=== PATIENT | male | born 1970 | race Hispanic/Latino ===

== ENCOUNTER 2025-04-15 14:35 | Emergency (ER) | payer BC, SELFPAY ==
[2025-04-15 14:36] VITALS: BP 173/102
[2025-04-15 18:31] VITALS: BP 153/98
--- NOTE | 2025-04-15 18:39 | ED.GENMED ---
History of Present Illness
General
Chief Complaint: Back Pain
Time Seen by Provider: 04/15/25 18:28
History of Present Illness
History of Present Illness:
54-year-old male presents to the emergency department for evaluation of lower back pain for the past 2 days. States he bent forward and twisted to pick something up when he felt acute pain. Gradually worsening since onset. No lower extremity
radiculopathy or paresthesias, denies bowel or bladder incontinence. Has taken acetaminophen without relief.
Past History
Past History
ED Past Medical History: None and HTN (untreated)
ED Past Surgical History: None
Social History
Tobacco: Smoker
Alcohol: None
Drug: None
Review of Systems
Review of Systems
Allergies reviewed?: Yes
All Other Systems: ROS reviewed and negative except as documented in HPI and ROS
Phy Exam
Physical Exam
Physical Exam:
GEN: Well appearing, NAD, WDWN
HEENT: Oral mucosa moist, no scleral icterus
Cardiac: Regular rate
Lung: No respiratory distress, no tachypnea
MSK: No gross deformity or injuries, no midline lumbar spine tenderness. Gait is steady, bilateral lower extremity strength intact in all abbasi
Skin: Good color, no pallor or jaundice, no rashes
Neuro: AO x3, moves all extremities freely
Psych: Calm, cooperative
Course
Orders/Labs/Results
Orders:
Orders
04/15/25 18:41
Ketorolac [Toradol] 30 mg IM NOW STA
Vital Signs
Initial and Last Documented VS:
Initial Vital Signs
Temp Pulse Resp BP Pulse Ox
97.5 F 75 16 173/102 99
04/15/25 14:36 04/15/25 14:36 04/15/25 14:36 04/15/25 14:36 04/15/25 14:36
Last Documented Vital Signs
Temp Pulse Resp BP Pulse Ox
97.5 F 78 16 153/98 99
04/15/25 14:36 04/15/25 18:31 04/15/25 18:31 04/15/25 18:31 04/15/25 18:40
MDM/Problems Addressed
MDM/Problems Addressed:
Likely acute musculoskeletal strain, doubt disc herniation given lack of radiating symptoms, no trauma preceding the injury thus imaging is not warranted at this time. Discussed supportive care
*Pulse Oximetry
SaO2: 99
Oxygen Mode of Delivery: Room air
Patient hypoxic: no
*Critical Care Note
Total Time (30-74mins, 75-104mins- exclusive of procedures): Not Applicable
ED Attending Note
-
Portions of this chart may have been created with voice recognition software.� Occasional wrong word or��sound alike� substitutions may have occurred due to the inherent limitations of voice recognition software.
Discharge Plan
Departure
Patient Disposition: Home (Routine Discharge)
Date of Disposition: 04/15/25
Time of Disposition: 18:40
Patient with high blood pressure during this ER visit?: No
Discharge Problem:
Lumbar strain
Instructions: Low Back Pain (DC)
Prescriptions:
New
celecoxib 200 mg capsule
200 mg PO BID Qty: 20 0RF
methocarbamol 750 mg tablet
750 - 1,500 mg PO HS Qty: 12 0RF
No Action
famotidine 20 MG tablet
20 mg PO BID Qty: 28 0RF
Rx Instructions:
Take 20 mg twice a day for 14 days
ascorbic acid (vitamin C) [Vitamin C] 500 MG tablet
1,000 mg PO BID Qty: 56 0RF
Rx Instructions:
Take 1,000 mg twice a day for 14 days
aspirin 81 MG tablet,chewable
81 mg PO DAILY Qty: 14 0RF
Rx Instructions:
Take 81 mg daily for 14 days
albuterol sulfate 1 PUFF HFA aerosol inhaler
2 puff inhalation R [id number] PRN (Reason: shortness of breath) Qty: 1 0RF
zinc sulfate 220 MG capsule
220 mg PO DAILY Qty: 14 0RF
Rx Instructions:
Take 220 mg daily for 14 days
cholecalciferol (vitamin D3) 1,000 UNITS tablet
2,000 units PO DAILY Qty: 28 0RF
Rx Instructions:
Take 2,000 units daily for 14 days
melatonin 5 MG tablet
5 mg PO HS Qty: 14 0RF
Rx Instructions:
Take 5 mg daily at bedtime for 14 days
Referrals:
NONE,* [Family Provider, Internal Medicine]
Interventions
Interventions:
*Risk Screen - Suicide Last Done: 04/15/25 14:36
*General Assessment Last Done: 04/15/25 17:00
*Neglect/Abuse Screening Last Done: 04/15/25 17:00
*ED- Fall Risk Assessment Last Done: 04/15/25 17:00
*ED COVID-19 Vaccine History Last Done: 04/15/25 17:00
*ED Influenza Vaccine History Last Done: 04/15/25 17:00
*Nursing Disposition Last Done: 04/15/25 18:55
ED-Musculoskeletal Assessment Last Done: 04/15/25 17:00
Discharge Date and Time
Discharge Date/Time: 04/15/25 18:55
Print Language: [id number]
[2025-04-15] MEDS: TORADOL 30 MG IM (18:53)
== END 2025-04-15 18:55 | disposition home or self-care (01) ==
LOC: EMR 14:35
PROVIDERS: EMERGENCY PHYSICIAN Emergency Medicine
DX: S39.012A Strain of muscle, fascia and tendon of lower back, initial encounter (principal); X58.XXXA Exposure to other specified factors, initial encounter; I10 Essential (primary) hypertension; F17.200 Nicotine dependence, unspecified, uncomplicated
CPT/HCPCS: 99282